=== PATIENT | female | born 1990 | race Two or more races ===

== ENCOUNTER 2020-11-27 19:49 | Inpatient (IN) ==
[2020-11-27] MEDS ORDERED: OXYTOCIN 30 UNITS/500 ML BAG IV PRN (21:08)
--- NOTE | 2020-11-27 21:15 | Progress Note ---
Date of Service November 27, 2020 Subjective Pt admitted for labor SROM @ 19;00 +ve Meconium on admission FHR; CAT VE; 2-3/50/high CTX; Irreg Minimal intensity Bedside sono: VT Plan admit will consider starting Pitocin augmentation after 23;00 hrs based on ctxs intensity and frequency Plan discussed with pt and spouse both agree with plan Results & Data ([facility]) Vital Signs (Past 12 Hours) Vital Signs Pulse BP 11/27/20 19:59 95 H 119/69
[2020-11-27 21:41] LABS: Hematocrit (blood only) 38.6 % (37-47); Hemoglobin 12.7 g/dL (12.0-16.0); Mean Corpuscular Hemoglobin 27.4 pg (25-34); Mean Corpuscular Hgb Conc 32.9 g/dL (32-36); Mean Corpuscular Volume 83.2 fL (80-100); Mean Platelet Volume 11.1 fL (7.4-10.4); Platelet Count 311 K/uL (130-400); RDW Coefficient of Variation 14.6 % (11.5-14.5); RDW Standard Deviation 44.2 fL (36.4-46.3); Red Blood Count 4.64 M/uL (4.2-5.4); White Blood Count 12.32 K/uL (4.8-10.8)
[2020-11-28] MEDS: LACTATED RINGER'S 1,000 ML IV PRN ×5 (00:24→23:05)
[2020-11-28] MEDS: OXYTOCIN 30 UNITS/500 ML BAG IV PRN ×2 (00:24→07:45)
[2020-11-28] MEDS ORDERED: ePHEDrine sulfate 50 MG/ML AMP ONE (02:10)
[2020-11-28] MEDS ORDERED: SODIUM CHLORIDE 0.9% INJ 10 ML VIAL ONE (02:10)
[2020-11-28] MEDS ORDERED: BUPIVACAINE 0.25% 30 ML VIAL ONE (02:10)
[2020-11-28] MEDS ORDERED: fentaNYL 2MCG/ML ROPIVACAINE 1.25MG/ML 100 ML BAG EPI ONE (02:11)
[2020-11-28] MEDS ORDERED: fentaNYL citrate 100 MCG/2 ML VIAL ONE (02:11)
[2020-11-28] MEDS ORDERED: ONDANSETRON INJ 2 MG/ML 2 ML VIAL IV PRN (02:36)
[2020-11-28] MEDS ORDERED: ePHEDrine sulfate 50 MG/ML AMP IV PRN (02:36)
[2020-11-28] MEDS ORDERED: NALOXONE HCL 1 MG in SODIUM CHLORIDE 0.9% 1000ML 1,000 ML IV PRN (02:36)
[2020-11-28] MEDS ORDERED: NALOXONE HCL 0.4 MG/1 ML VIAL/CARP IV PRN (02:36)
[2020-11-28] MEDS ORDERED: diphenhydrAMINE 50 MG/ML VIAL IV PRN (02:36)
[2020-11-28] MEDS ORDERED: PROMETHAZINE HCL 25 MG in SODIUM CHLORIDE 0.9% 50 ML IV PRN (02:36)
--- NOTE | 2020-11-28 02:36 | Anesthesiology Consultation ---
Date of Service November 28, 2020 Assessment & Plan ASA ASA2 Proposed Anesthesia Anesthesia Type: Labor Epidural Risk / Benefits Reviewed With: PT / POA / Parent / Guardian, Accepts Plan and Informed Consent Obtained History Height/Weight Height: 5 ft 1 in Weight: 97.069 kg Allergies Allergy/AdvReac Type Severity Reaction Status Date / Time dust Allergy Rash Uncoded 11/27/20 20:24 Medications Home Medications Medication Instructions Recorded Confirmed Last Taken 1 tab PO DAILY 11/27/20 11/27/20 11/26/20 22:00 Vitamin D (with calcium) 1 tab PO DAILY 11/27/20 11/27/20 11/26/20 22:00 Active Medications Generic Name Dose Route Start Last Admin Trade Name Freq PRN Reason Stop Dose Admin Oxytocin 30 units in 500 mls @ 4 mls/hr 11/27/20 21:08 11/28/20 01:00 Pitocin IV 11/29/20 21:07 0.24 units/hr .Q24H PRN 4 mls/hr Labor Induction/Augmentation Titration Protocol 0.24 UNITS/HR Lactated Ringer's 1,000 mls @ 125 mls/hr 11/27/20 21:08 11/28/20 02:52 Lr IV 11/29/20 21:07 125 mls/hr .Q8H PRN Administration L&D Protocol Protocol Past Medical History Medical History High cholesterol No meds Hypothyroidism No meds Exercise / Class Metabolic Activity II 4-5 Yardwork/Stairs/Walk up hill Past Family History Family History Father Diabetes Mother Osteoporosis Goiter Past Surgical History Surgical History History of surgical removal of pilonidal cyst 2013 Past Anesthesia History No Hx of Anesthesia Complications and No Family Hx of Anesthesia Complications History of PONV No Hx of PONV and No Hx of Motion Sickness Social History Smoking Status: Never smoker Hx Alcohol Use: No Hx Substance Use: No Review of Systems denies fever/cough/ colds/ chest pain/ SOB/ DENISE denies DENISE Physical Exam Vital Signs Last Vital Signs Temp 36.9 C 11/28/20 00:15 Pulse 93 H 11/28/20 03:00 Resp 18 11/27/20 22:55 BP 124/61 11/28/20 03:00 Pulse Ox 98 11/28/20 03:00 ENMT Mouth: no TMJ abnormality and no dentition abnormality Thyromental Distance: > or= 3.5 Finger Breadths Mallampati Class: II Neck neck extension not limited Respiratory normal respiratory effort; no respiratory distress Auscultation: lungs clear to auscultation bilaterally Cardiovascular Rate/Rhythm: regular rate and regular rhythm Neurologic moves all extremities Psychiatric Orientation: alert and oriented x 3 Testing Laboratory Results 11/27/20 21:31
--- NOTE | 2020-11-28 06:20 | Progress Note ---
Date of Service November 28, 2020 Assessment & Plan Admission and Anticipated Discharge Date Admission Date: November 27, 2020 Subjective Pt doing well Epidural analgesia in place Bradycardia after bladder was emptied Pitocin was d/chelly, placed on left side and oxygen given. no Brethine given FHR returns to baseline- CAT1 Ctx 1-3 VE; 10/100/0 station no pelvic pressure or urgency to push plan Passive descent Results & Data ([facility]) Vital Signs (Past 12 Hours) Vital Signs Temp Pulse Resp BP Pulse Ox 11/28/20 06:05 83 100 11/28/20 06:00 68 100 11/28/20 05:55 71 100 11/28/20 05:50 83 100 11/28/20 05:45 79 97 11/28/20 05:42 83 120/59 L 11/28/20 05:40 80 97 11/28/20 05:36 102 H 93 11/28/20 05:35 118 H 99 11/28/20 05:30 77 96 11/28/20 05:25 71 96 11/28/20 05:20 75 96 11/28/20 05:15 94 H 97 11/28/20 05:10 36.9 C 100 H 18 107/55 L 97 11/28/20 05:05 82 97 11/28/20 05:00 70 95 11/28/20 04:57 74 94 11/28/20 04:55 69 95 11/28/20 04:53 69 110/57 L 11/28/20 04:50 70 95 11/28/20 04:46 70 94 11/28/20 04:45 72 95 11/28/20 04:41 76 94 11/28/20 04:40 73 94 11/28/20 04:39 70 113/54 L 11/28/20 04:35 69 95 11/28/20 04:34 76 94 11/28/20 04:30 72 96 11/28/20 04:28 69 94 11/28/20 04:25 72 94 11/28/20 04:23 69 109/53 L 11/28/20 04:22 78 94 11/28/20 04:20 78 94 11/28/20 04:15 70 94 11/28/20 04:14 72 94 11/28/20 04:10 71 95 11/28/20 04:09 70 112/56 L 11/28/20 04:08 72 94 11/28/20 04:05 77 94 11/28/20 04:03 77 94 11/28/20 04:00 72 95 11/28/20 03:55 70 95 11/28/20 03:53 71 114/56 L 11/28/20 03:52 16 11/28/20 03:50 78 95 11/28/20 03:48 75 94 11/28/20 03:45 72 95 11/28/20 03:41 75 94 11/28/20 03:40 72 95 11/28/20 03:38 72 108/53 L 11/28/20 03:36 74 94 11/28/20 03:35 74 94 11/28/20 03:30 76 95 11/28/20 03:25 80 96 11/28/20 03:24 72 116/56 L 11/28/20 03:20 86 97 11/28/20 03:15 98 H 97 11/28/20 03:10 36.8 C 82 18 97 11/28/20 03:08 88 108/63 11/28/20 03:06 90 117/65 11/28/20 03:05 89 97 11/28/20 03:00 93 H 124/61 98 11/28/20 02:59 84 131/69 11/28/20 02:55 87 18 130/72 100 11/28/20 02:50 91 H 99 11/28/20 02:45 83 100 11/28/20 02:40 92 H 100 11/28/20 02:35 79 100 11/28/20 02:30 79 99 11/28/20 02:25 77 100 11/28/20 02:20 94 H 100 11/28/20 02:15 90 100 11/28/20 02:03 71 132/72 11/28/20 00:15 36.9 C 11/28/20 00:13 74 117/66 11/27/20 23:10 36.7 C 11/27/20 22:55 36.8 C 18 11/27/20 20:38 37.4 C 95 H 18 119/69 11/27/20 19:59 95 H 119/69
[2020-11-28] MEDS: fentaNYL 2MCG/ML ROPIVACAINE 1.25MG/ML 100 ML BAG EPI PRN ×2 (07:07→11:00)
--- NOTE | 2020-11-28 08:40 | Progress Note ---
Date of Service November 28, 2020 Assessment & Plan Admission and Anticipated Discharge Date Admission Date: November 27, 2020 Subjective Pt had another episode of decel after Pitocin was started at 2mu Pitocin was d/chelly and pt placed on left side with nasal oxygen VE; 10/+1 station scalp electrode placed FHR returns to baseline Had pt push once to see if there would be a change in station with pushing- No change noted Bladder cath. by nurse Results & Data ([facility]) Vital Signs (Past 12 Hours) Vital Signs Temp Pulse Resp BP Pulse Ox 11/28/20 08:30 77 100 11/28/20 08:25 88 100 11/28/20 08:20 87 100 11/28/20 08:15 79 100 11/28/20 08:12 75 102/53 L 11/28/20 08:10 80 100 11/28/20 08:06 74 94 11/28/20 08:05 75 94 11/28/20 08:00 75 94 11/28/20 07:59 77 94 11/28/20 07:55 76 94 11/28/20 07:51 72 94 11/28/20 07:50 73 95 11/28/20 07:45 84 96 11/28/20 07:42 69 126/64 11/28/20 07:40 72 100 11/28/20 07:35 70 99 11/28/20 07:30 64 99 11/28/20 07:25 68 99 11/28/20 07:20 73 100 11/28/20 07:15 113 H 100 11/28/20 07:12 76 105/55 L 11/28/20 07:10 93 H 100 11/28/20 07:05 83 100 11/28/20 07:00 76 100 11/28/20 06:55 75 100 11/28/20 06:50 72 100 11/28/20 06:45 78 100 11/28/20 06:42 37.1 C 73 18 112/55 L 11/28/20 06:40 80 100 11/28/20 06:35 74 100 11/28/20 06:30 82 100 11/28/20 06:25 82 100 11/28/20 06:20 82 100 11/28/20 06:15 85 100 11/28/20 06:11 93 H 119/65 11/28/20 06:10 85 100 11/28/20 06:05 83 100 11/28/20 06:00 68 100 11/28/20 05:55 71 100 11/28/20 05:50 83 100 11/28/20 05:45 79 97 11/28/20 05:42 83 120/59 L 11/28/20 05:40 80 97 11/28/20 05:36 102 H 93 11/28/20 05:35 118 H 99 11/28/20 05:30 77 96 11/28/20 05:25 71 96 11/28/20 05:20 75 96 11/28/20 05:15 94 H 97 11/28/20 05:10 36.9 C 100 H 18 107/55 L 97 11/28/20 05:05 82 97 11/28/20 05:00 70 95 11/28/20 04:57 74 94 11/28/20 04:55 69 95 11/28/20 04:53 69 110/57 L 11/28/20 04:50 70 95 11/28/20 04:46 70 94 11/28/20 04:45 72 95 11/28/20 04:41 76 94 11/28/20 04:40 73 94 11/28/20 04:39 70 113/54 L 11/28/20 04:35 69 95 11/28/20 04:34 76 94 11/28/20 04:30 72 96 11/28/20 04:28 69 94 11/28/20 04:25 72 94 11/28/20 04:23 69 109/53 L 11/28/20 04:22 78 94 11/28/20 04:20 78 94 11/28/20 04:15 70 94 11/28/20 04:14 72 94 11/28/20 04:10 71 95 11/28/20 04:09 70 112/56 L 11/28/20 04:08 72 94 11/28/20 04:05 77 94 11/28/20 04:03 77 94 11/28/20 04:00 72 95 11/28/20 03:55 70 95 11/28/20 03:53 71 114/56 L 11/28/20 03:52 16 11/28/20 03:50 78 95 11/28/20 03:48 75 94 11/28/20 03:45 72 95 11/28/20 03:41 75 94 11/28/20 03:40 72 95 11/28/20 03:38 72 108/53 L 11/28/20 03:36 74 94 11/28/20 03:35 74 94 11/28/20 03:30 76 95 11/28/20 03:25 80 96 11/28/20 03:24 72 116/56 L 11/28/20 03:20 86 97 11/28/20 03:15 98 H 97 11/28/20 03:10 36.8 C 82 18 97 11/28/20 03:08 88 108/63 11/28/20 03:06 90 117/65 11/28/20 03:05 89 97 11/28/20 03:00 93 H 124/61 98 11/28/20 02:59 84 131/69 11/28/20 02:55 87 18 130/72 100 11/28/20 02:50 91 H 99 11/28/20 02:45 83 100 11/28/20 02:40 92 H 100 11/28/20 02:35 79 100 11/28/20 02:30 79 99 11/28/20 02:25 77 100 11/28/20 02:20 94 H 100 11/28/20 02:15 90 100 11/28/20 02:03 71 132/72 11/28/20 00:15 36.9 C 11/28/20 00:13 74 117/66 11/27/20 23:10 36.7 C 11/27/20 22:55 36.8 C 18 11/27/20 20:38 37.4 C 95 H 18 119/69
[2020-11-28] MEDS ORDERED: ERYTHROMYCIN OP OINT 1 GM PKT ONE (10:09)
[2020-11-28] MEDS ORDERED: SODIUM CHLORIDE 0.9% 250 ML IV PRN (10:46)
[2020-11-28] MEDS ORDERED: LACTATED RINGER'S 1,000 ML IV SCH (11:21)
[2020-11-28] MEDS ORDERED: DIPHTHERIA/TETANUS/PERTUSSIS 0.5 ML SYR/VIAL IM ONE (11:21)
[2020-11-28] MEDS ORDERED: SUPERCREAM 0.870% 15 GM JAR EXT PRN (11:21)
[2020-11-28] MEDS ORDERED: bisacodyL 10 MG SUPP PR PRN (11:21)
[2020-11-28] MEDS ORDERED: OXYTOCIN 30 UNITS/500 ML BAG IV PRN (11:21)
[2020-11-28] MEDS ORDERED: HYDROCORTISONE ACETATE 25 MG SUPP PR PRN (11:21)
[2020-11-28] MEDS ORDERED: BENZOCAINE 20% AER SPR 82.5 GM CAN EXT PRN (11:21)
[2020-11-28 11:23] LABS: Hematocrit (blood only) 29.4 % (37-47); Hemoglobin 9.6 g/dL (12.0-16.0)
--- NOTE | 2020-11-28 11:25 | Anesthesia Procedure Note ---
Date of Service November 28, 2020 Anesthesia Post Epidural Note Vital Signs Vital Signs: Temp Pulse Resp BP Pulse Ox 37.2 C 129 H 20 104/58 L 96 11/28/20 09:30 11/28/20 11:21 11/28/20 09:30 11/28/20 11:21 11/28/20 11:20 Notes Mental Status: alert / awake / arousable and participated in evaluation Nausea / Vomiting: adequately controlled Pain: adequately controlled Airway Patency, RR, SpO2: stable & adequate BP & HR: stable & adequate Hydration State: stable & adequate Neuraxial Anesthesia: was administered and sensory block is resolving Anesthetic Complications: no major complications apparent and Pt Satisfied with anesthetic care Epidural: Removed without complications and With tip intact
[2020-11-28] MEDS: IBUPROFEN 600 MG TAB PO PRN (13:56)
[2020-11-28 17:43] LABS: Hematocrit (blood only) 25.7 % (37-47); Hemoglobin 8.6 g/dL (12.0-16.0); Mean Corpuscular Hemoglobin 27.7 pg (25-34); Mean Corpuscular Hgb Conc 33.5 g/dL (32-36); Mean Corpuscular Volume 82.6 fL (80-100); Mean Platelet Volume 10.7 fL (7.4-10.4); Platelet Count 290 K/uL (130-400); RDW Coefficient of Variation 14.6 % (11.5-14.5); RDW Standard Deviation 44.2 fL (36.4-46.3); Red Blood Count 3.11 M/uL (4.2-5.4); White Blood Count 21.93 K/uL (4.8-10.8)
--- NOTE | 2020-11-28 17:46 | Obstetrical Progress Note ---
Date of Service November 28, 2020 Assessment & Plan Admission and Anticipated Discharge Date Admission Date: November 27, 2020 Subjective Called to see patient who had earlier this morning with post- he morrhage and continued bleeding when she got up to bathroom to change her pad. Pad was soaked with blood and filled toilet with bloody water. Brought back to bed by nurse and when I came in she was pale but speaking and not diaphoretic. Urine output adequate from [place]. Her vitals were stable. H/H is pending. Continuing to receive IV fluids. Exam done at bedside reveals fundus to be firm with scant mount of blood on her pad that was changed when she got into bed before I arrived to see her. Will await H/H and continue IV fluids. Will keep NPO in case she needs to be brought to OR for exam. Results & Data ([facility]) Vital Signs (Past 12 Hours) Vital Signs Temp Pulse Resp BP Pulse Ox 11/28/20 13:55 111 H 95 11/28/20 13:51 105 H 101/59 L 11/28/20 13:50 37.5 C 103 H 18 95 11/28/20 13:45 103 H 93 11/28/20 13:44 114 H 86 L 11/28/20 13:42 107 H 93/55 L 11/28/20 13:40 110 H 95 11/28/20 13:35 116 H 96 11/28/20 13:31 104 H 118/56 L 11/28/20 13:30 106 H 94 11/28/20 13:25 102 H 94 11/28/20 13:21 92 H 117/56 L 11/28/20 13:20 106 H 96 11/28/20 13:15 138 H 97 11/28/20 13:11 118 H 121/58 L 11/28/20 13:10 132 H 97 11/28/20 13:05 137 H 97 11/28/20 13:01 130 H 122/60 11/28/20 13:00 140 H 18 95 11/28/20 12:55 137 H 96 11/28/20 12:50 117 H 96 11/28/20 12:45 134 H 96 11/28/20 12:41 120 H 123/57 L 11/28/20 12:40 140 H 97 11/28/20 12:35 112 H 95 11/28/20 12:31 106 H 115/54 L 11/28/20 12:30 116 H 95 11/28/20 12:25 146 H 96 11/28/20 12:22 112 H 122/48 L 11/28/20 12:20 124 H 97 11/28/20 12:15 117 H 95 11/28/20 12:11 111 H 114/53 L 11/28/20 12:10 109 H 95 11/28/20 12:05 120 H 95 11/28/20 12:01 110 H 110/54 L 11/28/20 12:00 118 H 96 11/28/20 11:55 116 H 96 11/28/20 11:51 114 H 110/71 11/28/20 11:50 117 H 96 11/28/20 11:46 125 H 109/53 L 11/28/20 11:45 37.6 C H 125 H 18 96 11/28/20 11:40 121 H 96 11/28/20 11:36 118 H 96/54 L 11/28/20 11:35 119 H 95 11/28/20 11:30 137 H 95 11/28/20 11:25 109 H 95 11/28/20 11:21 129 H 104/58 L 11/28/20 11:20 117 H 96 11/28/20 11:15 122 H 97 11/28/20 11:10 117 H 100 11/28/20 11:09 114 H 96/51 L 11/28/20 11:05 129 H 99 11/28/20 11:04 117 H 92/51 L 11/28/20 11:00 103 H 18 98 11/28/20 10:59 121 H 103/51 L 11/28/20 10:55 103 H 100 11/28/20 10:54 103 H 101/57 L 11/28/20 10:50 101 H 97 11/28/20 10:49 105 H 103/61 11/28/20 10:45 104 H 88/64 L 100 11/28/20 10:41 107 H 87/42 L 11/28/20 10:40 110 H 98 11/28/20 10:38 116 H 82/49 L 11/28/20 10:35 131 H 92 11/28/20 10:34 130 H 107/51 L 11/28/20 10:30 129 H 93 11/28/20 10:25 121 H 93 11/28/20 10:20 116 H 93 11/28/20 10:15 122 H 92 11/28/20 10:11 106 H 136/60 11/28/20 10:10 110 H 90 11/28/20 10:07 121 H 94 11/28/20 10:05 114 H 95 11/28/20 10:00 120 H 98 11/28/20 09:55 109 H 96 11/28/20 09:53 91 H 93 11/28/20 09:50 114 H 97 11/28/20 09:47 109 H 89 L 11/28/20 09:45 105 H 99 11/28/20 09:42 92 H 134/62 11/28/20 09:41 140 H 92 11/28/20 09:40 108 H 99 11/28/20 09:35 135 H 84 L 11/28/20 09:30 37.2 C 94 H 20 99 11/28/20 09:25 102 H 100 11/28/20 09:20 118 H 100 11/28/20 09:15 76 99 11/28/20 09:12 71 122/63 11/28/20 09:10 119 H 99 11/28/20 09:05 98 H 100 11/28/20 09:00 66 100 11/28/20 08:55 71 100 11/28/20 08:50 76 100 11/28/20 08:45 75 100 11/28/20 08:42 74 18 105/52 L 11/28/20 08:40 74 100 11/28/20 08:35 71 100 11/28/20 08:30 77 100 11/28/20 08:25 88 100 11/28/20 08:20 87 100 11/28/20 08:15 79 100 11/28/20 08:12 75 102/53 L 11/28/20 08:11 20 11/28/20 08:10 80 100 11/28/20 08:06 74 94 11/28/20 08:05 75 94 11/28/20 08:00 75 94 11/28/20 07:59 77 94 11/28/20 07:55 76 94 11/28/20 07:51 72 94 11/28/20 07:50 73 95 11/28/20 07:45 84 96 11/28/20 07:42 69 16 126/64 11/28/20 07:40 72 100 11/28/20 07:35 70 99 11/28/20 07:30 64 99 11/28/20 07:25 68 99 11/28/20 07:20 73 100 11/28/20 07:15 113 H 100 11/28/20 07:12 37.1 C 76 18 105/55 L 11/28/20 07:10 93 H 100 11/28/20 07:05 83 100 11/28/20 07:00 76 100 11/28/20 06:55 75 100 11/28/20 06:50 72 100 11/28/20 06:45 78 100 11/28/20 06:42 37.1 C 73 18 112/55 L 11/28/20 06:40 80 100 11/28/20 06:35 74 100 11/28/20 06:30 82 100 11/28/20 06:25 82 100 11/28/20 06:20 82 100 11/28/20 06:15 85 100 11/28/20 06:11 93 H 119/65 11/28/20 06:10 85 100 11/28/20 06:05 83 100 11/28/20 06:00 68 100 11/28/20 05:55 71 100 11/28/20 05:50 83 100 11/28/20 05:45 79 97 11/28/20 05:42 83 120/59 L
[2020-11-28] MEDS ORDERED: DOCUSATE SODIUM 100 MG CAP PO SCH (21:00)
[2020-11-28] MEDS: DOCUSATE SODIUM 100 MG CAP PO SCH (21:03)
[2020-11-29 00:23] LABS: Hematocrit (blood only) 22.3 % (37-47); Hemoglobin 7.3 g/dL (12.0-16.0)
--- NOTE | 2020-11-29 02:13 | Delivery Summary ---
DATE OF OPERATION: 11/28/2020 CLINICAL HISTORY: The patient is a 30-year-old female, para 0-0-0-0 at 39 weeks and 2 days, who was admitted last night for ruptured membranes and was started on Pitocin. She became fully dilated. She was complete and the head was and I was called in for delivery, delivering a live male over an intact perineum with Apgars of 8 and 9. Spontaneous delivery with delayed cord clamping. Baby spontaneously cried without any difficulty. The cord was doubly clamped and cut. Baby was then handed to the mother with skin to skin. Cord blood was obtained. Placenta was then spontaneously delivered and intact. Following the delivery, the patient had extensive bleeding, was found that she had a second-degree laceration and later found to have a vaginal sulcus tear on the right hand side that was bleeding extensively. Several [id number] sutures using 3-0 Vicryl sutures were then used and then the bleeding had slowly subsided and the perineum was repaired also in the usual fashion repairing the deep layers and then subcuticular layer for the skin with 3-0 Vicryl suture as well. TOTAL ESTIMATED BLOOD LOSS: 800 mL. Final sponge, needle and instrument count were found to be correct. There were no other complications. Placenta was not submitted or saved or sent to pathology. I attest to the content of the Intraoperative Record and any orders documented therein. Any exception s are noted below.
[2020-11-29] MEDS: ACETAMINOPHEN 325 MG TAB PO PRN ×2 (02:34→07:41)
[2020-11-29 06:32] LABS: Hematocrit (blood only) 21.5 % (37-47); Hemoglobin 7.1 g/dL (12.0-16.0); Mean Corpuscular Hemoglobin 27.7 pg (25-34); Mean Platelet Volume 10.3 fL (7.4-10.4); Platelet Count 232 K/uL (130-400); RDW Coefficient of Variation 14.8 % (11.5-14.5); Red Blood Count 2.56 M/uL (4.2-5.4); White Blood Count 16.16 K/uL (4.8-10.8)
[2020-11-29] MEDS ORDERED: SODIUM CHLORIDE 0.9% 250 ML IV PRN (07:06)
--- NOTE | 2020-11-29 07:12 | Obstetrical Progress Note ---
Date of Service November 29, 2020 Assessment & Plan Admission and Anticipated Discharge Date Admission Date: November 27, 2020 Subjective PPD#1 still weak but not dizzy or lightheaded or syncopal bleeding has stopped patient prefers a female do to sabianist reasons and does not want to be examined nurse checked her perineum this morning and no bleeding was noted Physical Exam Constitutional: WD/WN, vitals as above comfortable Discussion with patient and her regarding blood transfusion her H??H has leveled off with no further drop In view of H?H <8 will offer transfusion and they are in agreement Will get H?H post trasnsfusion Results & Data ([facility]) Vital Signs (Past 12 Hours) Vital Signs Temp Pulse Resp BP Pulse Ox 11/29/20 05:00 37 C 92 H 18 110/71 97 11/28/20 23:47 37.4 C 88 18 117/73 96 11/28/20 19:45 36.8 C 102 H 18 124/75 98
[2020-11-29] MEDS: LACTATED RINGER'S 1,000 ML IV PRN (07:35)
[2020-11-29] MEDS ORDERED: diphenhydrAMINE Capsule 25 MG CAP PO ONE (07:56)
[2020-11-29] MEDS ORDERED: diphenhydrAMINE Capsule 25 MG CAP ONE (07:57)
[2020-11-29] MEDS: DOCUSATE SODIUM 100 MG CAP PO SCH ×2 (08:52→20:49)
[2020-11-29] MEDS: IBUPROFEN 600 MG TAB PO PRN ×3 (08:52→20:48)
[2020-11-29] MEDS: FERROUS SULFATE 325 MG TAB PO SCH (08:52)
[2020-11-29] MEDS: PRENATAL VITAMIN 1 TAB PO SCH (08:52)
[2020-11-29] MEDS ORDERED: NON-FORMULARY MEDICATION (Prenatal 1 TAB) PO SCH (09:00)
[2020-11-29] MEDS: CALCIUM 600MG + VIT D 400 IU TAB PO SCH (09:02)
[2020-11-29 16:57] LABS: Hematocrit (blood only) 27.5 % (37-47); Hemoglobin 9.2 g/dL (12.0-16.0)
[2020-11-29] MEDS ORDERED: bisacodyL 5 MG TABEC PO SCH (20:00)
[2020-11-30 06:29] LABS: Basophils # (auto) 0.02 K/uL (0-0.2); Basophils % (auto) 0.1 %; Eosinophils # (auto) 0.12 K/uL (0-0.5); Eosinophils % (auto) 0.9 %; Hematocrit (blood only) 26.3 % (37-47); Hemoglobin 8.6 g/dL (12.0-16.0); Immature Granulocytes # (auto) 0.09 K/uL (0.00-0.02); Immature Granulocytes % (auto) 0.6 %; Lymphocytes % (auto) 22.1 %; Mean Corpuscular Hemoglobin 27.7 pg (25-34); Mean Corpuscular Hgb Conc 32.7 g/dL (32-36); Mean Corpuscular Volume 84.6 fL (80-100); Mean Platelet Volume 10.2 fL (7.4-10.4); Monocytes # (auto) 0.86 K/uL (0.11-0.59); Monocytes % (auto) 6.1 %; Neutrophils # (auto) 9.82 K/uL (1.4-6.5); Neutrophils % (auto) 70.2 %; Platelet Count 226 K/uL (130-400); RDW Standard Deviation 46.4 fL (36.4-46.3); Red Blood Count 3.11 M/uL (4.2-5.4); White Blood Count 14.01 K/uL (4.8-10.8)
[2020-11-30] MEDS: CALCIUM 600MG + VIT D 400 IU TAB PO SCH (09:12)
[2020-11-30] MEDS: PRENATAL VITAMIN 1 TAB PO SCH (09:12)
[2020-11-30] MEDS: DOCUSATE SODIUM 100 MG CAP PO SCH (09:12)
[2020-11-30] MEDS: FERROUS SULFATE 325 MG TAB PO SCH (09:12)
[2020-11-30] MEDS: IBUPROFEN 600 MG TAB PO PRN (09:13)
[2020-11-30 12:22] LABS: Hematocrit (blood only) 30.2 % (37-47); Hemoglobin 9.9 g/dL (12.0-16.0)
--- NOTE | 2020-11-30 14:06 | Obstetrical Progress Note ---
Date of Service November 30, 2020 Subjective Ambulation: ambulating normally Voiding: no voiding problems Passing Gas:: Yes Diet Tolerance:: regular diet Lochia:: Small Feeding Type:: breast feeding Review of Systems All systems reviewed & are unremarkable except as noted in HPI & below Physical Exam Constitutional WD/WN, vitals as above well developed and well nourished Eyes PERRL, conjunctivae normal, anicteric sclerae Neck trachea midline, no thyromegaly Respiratory normal respiratory effort, lungs clear to auscultation Auscultation: no crackles, no rales and no wheezes Cardiovascular RRR, no murmur, no edema Gastrointestinal (Abdomen) normal bowel sounds, soft, nontender, no hepatosplenomegaly Uterus is below umbilicus Musculoskeletal no cyanosis or clubbing, extremities motor strength 5/5 Skin no rashes, warm and dry Neurologic patellar DTR's 2+ bilat, sensation intact Psychiatric A+Ox3, euthymic affect Genitourinary normal external appearance Results & Data ([facility]) Vital Signs (Past 12 Hours) Vital Signs Temp Pulse Resp BP Pulse Ox 11/30/20 08:15 37.1 C 88 16 118/73 97
--- NOTE | 2020-11-30 14:07 | Obstetrical Progress Note ---
Date of Service November 30, 2020 Assessment & Plan (1) Normal course: PPD #2 PPH- pt received 2 units of blood and is doing well stable H/H pt disch home Subjective Ambulation: ambulating normally Voiding: no voiding problems Passing Gas:: Yes Diet Tolerance:: regular diet Lochia:: Small Feeding Type:: breast feeding Review of Systems All systems reviewed & are unremarkable except as noted in HPI & below Physical Exam Constitutional WD/WN, vitals as above well developed and well nourished Eyes PERRL, conjunctivae normal, anicteric sclerae Neck trachea midline, no thyromegaly Respiratory normal respiratory effort, lungs clear to auscultation Auscultation: no crackles, no rales and no wheezes Cardiovascular RRR, no murmur, no edema Gastrointestinal (Abdomen) normal bowel sounds, soft, nontender, no hepatosplenomegaly Uterus is below umbilicus Musculoskeletal no cyanosis or clubbing, extremities motor strength 5/5 Skin no rashes, warm and dry Neurologic patellar DTR's 2+ bilat, sensation intact Psychiatric A+Ox3, euthymic affect Genitourinary normal external appearance Results & Data ([facility]) Vital Signs (Past 12 Hours) Vital Signs Temp Pulse Resp BP Pulse Ox 11/30/20 08:15 37.1 C 88 16 118/73 97
== END 2020-11-30 16:40 | disposition home or self-care (01) | DRG 807 ==
LOC: OPB 19:49 → 4S1 19:51 → 4S2 11-28 15:03